=== PATIENT | female | born 1950 | race Caucasian/White ===

== ENCOUNTER 2023-11-18 09:28 | Outpatient (CLI) | payer MEDICARE, OTHER, SELFPAY ==
--- NOTE | 2023-12-01 16:16 | WPDSLEEPSTUD ---
Sleep Study Date of Study: 11/18/23 Ordering Provider: Chalo Post, CHYRON OPERATOR Interpreting Physician: Yaimleth Sheldon, DO Sleep Study Type: Polysomnogram Height: 1.73 m Weight: 95.254 kg Body Mass Index: 31.9 Neck Circumference (inches): 16.5 [place]: 9 Reason for Sleep Study Previously diagnosed sleep apnea but had difficulty tolerating CPAP so he quit using it. He developed atrial fibrillation. Sleep History The patient is a 73-year-old male that had a sleep study ordered by his ENT provider for evaluation of sleep apnea. The patient denies awakening at night with heartburn, belching or cough. He is unsure if he snores. He denies having trouble sleeping when he has a cold. He rarely wakes up gasping for air throughout the night. He rarely has breathing problems at night observed by himself or others. He denies sweating excessively at night. He rarely has heart palpitations or irregular heartbeats during the night. He occasionally falls asleep during the day but never while driving. He denies sleep paralysis, cataplexy and hypnagogic / hypnopompic hallucinations. He denies having trouble at school or work due to sleepiness. He denies feeling afraid of going to sleep. He denies having nightmares. He frequently remembers his dreams. He rarely has thoughts racing through his mind. He occasionally feels sad, depressed or anxious. He denies having muscular tension. He denies noticing parts of his body jerk. He denies kicking during the night. He denies having crawling and aching feelings in his legs but occasionally has leg pain during the night. He denies grinding his teeth during sleep and denies awakening with morning jaw pain. He denies being bothered by pain during the day but is occasionally awakened by pain during the night. He denies waking up feeling stiff in the morning. He denies waking up with sore or achy muscles. He denies waking up with pain in the neck, spine in other joints. He goes to bed at 11:00 p.m. on both weekdays and weekends. It takes him less than 10 minutes to fall asleep. He wakes up 3 times throughout the night to urinate and it takes 20 minutes for him to fall back asleep. He wakes up at 7:00 a.m. on both weekdays and weekends. He typically gets 5-6 hours of sleep per night. He will stay in bed for 15-30 minutes after waking up in the morning. He currently lives alone. He denies consuming any caffeinated beverages within 2 hours of bedtime. He denies engaging in physical exercise before bedtime. He denies reading and watching television before falling asleep. He will take naps in afternoon or the evening but they are not refreshing. He consumes 1-2 caffeinated sodas per day. He consumes 1 alcoholic beverage per day. He denies tobacco and recreational drug use. [facility] Past Medical History Medical History Atrial fibrillation Sleep Procedure A full night polysomnogram using the [employer] multi-channel system recorded the standard physiologic parameters including EEG, EOG, submentalis EMG, anterior tibialis EMG, EKG, body position, nasal and oral airflow using nasal pressure sensor and thermistor.? Respiratory parameters of chest and abdominal movements were recorded with Respiratory Inductance Plethysmography belts. Oxygen saturation was recorded by pulse oximetry. Video monitoring was also performed. Sleep stages, periodic limb movements, and EEG arousals were scored in 30 second epochs according to the criteria of the AASM Scoring Manual. The Apnea-Hypopnea Index was calculated using CMS guidelines for definition of hypopnea with 4% O2 desaturations while scoring respiratory events. Sleep Architecture The total recording time was 455.2 minutes.? The total sleep time was 242.0 minutes. Sleep latency was 10.8 minutes. REM latency was 155.0 minutes. Sleep efficiency was 53.2%. The patient had 24 awakenings for an awakening index of
[2023-12-01 16:25] VITALS: BMI 31.9
== END 2023-11-19 07:21 | disposition home or self-care (01) ==
LOC: ANHCSM 09:31
PROVIDERS: Visit Provider Nurse Practitioner Family
DX: G47.30 Sleep apnea, unspecified (principal); G47.61 Periodic limb movement disorder
CPT/HCPCS: 95810